=== PATIENT | male | born 1990 | race Hispanic/Latino ===

== ENCOUNTER 2023-09-20 10:23 | Emergency (ER) | payer OTHER ==
[2023-09-20] MEDS ORDERED: Ketorolac Tromethamine 30 MG (1 mL) VIAL ONE (11:23)
== END 2023-09-20 11:32 | disposition home or self-care (01) ==
LOC: CSHERS 10:23 → EEVIPCON 10:23 → CSHERS 11:32
DX: R51.9 Headache, unspecified (principal); K21.9 Gastro-esophageal reflux disease without esophagitis; Z79.899 Other long term (current) drug therapy
CPT/HCPCS: 70450; 96372; J1885